=== PATIENT | male | born 1985 | race Hispanic/Latino ===

== ENCOUNTER 2017-12-28 01:15 | Emergency (ER) | payer SELFPAY ==
[2017-12-28] MEDS ORDERED: Ondansetron ODT 4 MG TAB ONE (02:22)
[2017-12-28 03:30] LABS: #Eosinphils 0.2 thou/uL (0.0-0.7); #Lymphocytes 1.6 thou/uL (1.20-3.40); #Monocytes 0.8 thou/uL (0.11-0.59); #Neutrophils 4.4 thou/uL (1.40-6.50); %Basophils 0.5 % (0.0-1.0); %Eosinophils 2.9 % (0.0-10.0); %Lymphocytes 22.6 % (21.0-51.0); %Monocytes 10.8 % (0.0-10.0); %Neutrophils 63.1 % (42.0-75.0); Hemoglobin 15.3 g/dL (14.0-18.0); Mean Corpuscular HGB CONC 33.6 g/dL (32.0-36.0); Mean Corpuscular Volume 92.2 fl (80.0-94.0); Mean Platelet Volume 10.1 fL (7.4-10.4); Platelet Count 164 thou/uL (130-400); RBC Distribution Width 11.4 % (11.5-14.5); Red Blood Cell (RBC) Count 4.94 mill/uL (4.70-6.10)
[2017-12-28 03:42] LABS: ALT (SGPT) 30 U/L (8-55); AST (SGOT) 25 U/L (5-34); Albumin 4.2 g/dL (3.5-5.0); Alkaline Phosphatase 99 U/L (40-150); Anion Gap 9 mmol/L (10-20); BUN (Urea Nitrogen) 18 mg/dL (8.9-20.6); Bilirubin, Total 0.3 mg/dL (0.2-1.2); Calc. Creatinine Clearance 0 mL/min (70-130); Calcium 8.6 mg/dL (7.8-10.44); Carbon Dioxide 24 mmol/L (22-29); Chloride 107 mmol/L (98-107); Estimated GFR-MDRD 67; Globulin 3.2 g/dL (2.4-3.5); Glucose 82 mg/dL (70-105); Potassium 3.5 mmol/L (3.5-5.1); Protein, Total 7.4 g/dL (6.0-8.3); Sodium 136 mmol/L (136-145)
== END 2017-12-28 04:01 | disposition home or self-care (01) ==
LOC: ERS 01:15
DX: F10.129 Alcohol abuse with intoxication, unspecified (principal); F39 Unspecified mood [affective] disorder
CPT/HCPCS: 80053; 83735; 85025; 93005; 96360; Q0162